=== PATIENT | female | born 1985 | race Caucasian/White ===

== ENCOUNTER 2017-05-25 07:55 | Day surgery (SDC) | payer OTHER ==
[2017-05-24 10:00] VITALS: BMI 21.1
[2017-05-25] MEDS ORDERED: PROMETHAZINE HCL 25 MG/1 ML VIAL IVPUSH PRN (09:53)
[2017-05-25] MEDS ORDERED: ONDANSETRON 4 MG/2 ML VIAL IVPUSH PRN (09:53)
[2017-05-25] MEDS ORDERED: LACTATED RINGERS SOLUTION 1,000 ML IV SCH (10:00)
[2017-05-25] MEDS ORDERED: ROCURONIUM BROMIDE 50 MG/5 ML VIAL ONE (10:03)
[2017-05-25] MEDS ORDERED: PROPOFOL 20 ML ONE (10:03)
[2017-05-25] MEDS ORDERED: MIDAZOLAM HCL 2 MG/2 ML SINGLE DOSE VIAL ONE (10:03)
[2017-05-25] MEDS ORDERED: LIDOCAINE HCL/PF 2% SDV 5ML VIAL ONE (10:21)
[2017-05-25] MEDS ORDERED: DEXAMETHASONE SOD PHOSPHATE 4 MG/1 ML VIAL ONE (10:23)
[2017-05-25] MEDS ORDERED: BUPIVACAINE HCL/PF 0.5% (5MG/ML) 10 ML VIAL IJ ONE ×2 (10:53)
[2017-05-25] MEDS ORDERED: GLYCOPYRROLATE 0.2 MG/1 ML VIAL ONE (11:04)
[2017-05-25] MEDS ORDERED: KETOROLAC TROMETHAMINE 30 MG/1 ML VIAL ONE (11:07)
[2017-05-25 13:48] VITALS: TEMP 97.8
[2017-05-25 14:33] VITALS: BP 135/72; PULSE 88
--- NOTE | 2017-05-25 15:08 | HP ---
Past Medical History - Primary Care Physician PCP:: Roby Corona - Admission Chief Complaint: 31yo P2 admitted for laparoscopic BTL History of Present Illness: Multiparity History Source: Patient Limitations to Obtaining History: No Limitations - Past Medical History COMPLEX MANAGER: No: Alzheimer's, CVA, Dementia, Migraine, Multiple Sclerosis, Peripheral Neuropathy, Parkinson's, Seizure, Syncope, TIA, Vertigo, Other Cardiovascular: No: AFIB, Aneurysm, Aortic Insufficiency, Aortic Stenosis, CAD, CHF, Deep Vein Thrombosis, HTN, Hyperlipdemia, [place], Mitral Insufficiency, Mitral Stenosis, Murmur, Pulmonary Hypertension, Other Pulmonary: No: Asthma, Bronchitis, Cancer, COPD, O2 Dependent, Pneumonia, Previously Intubated, Pulmonary Embolus, Pulmonary Fibrosis, Sleep Apnea, Other Hepatobiliary: Yes: Other (Primary billiary cholangitis) ...Para: 2 Heme/Onc: No: Anemia, B12 Deficiency, Bleeding Disorder, Cancer, Current Chemotherapy, Current Radiation Therapy, Hemochromatosis, Hypercoaguable State, Myeloproliferative Synd, Sickle Cell Disease, Sickle Cell Trait, Thrombocytopenia, Other Infectious Disease: No: AIDS, C-Diff, Herpes Zoster, HIV, MRSA, STD's, Tuberculosis, VREF, Other Psych: Yes: Bipolar Musculoskeletal: No: Bursitis, Chronic low back pain, Hemiparesis, Hemiplegia, Osteoarthritis, Paraplegia, Other Rheumatology: No: Fibromyalgia, Gout, Lupus, Rheumatoid Arthritis, Sarcoidosis, Vasculitis, Other ENT: No: Allergic Rhinitis, Sinusitis, Other Endocrine: No: Julio's Disease, Newburg's Disease, Diabetes Insipidus, Diabetes Mellitus, Hyperparathyroidism, Hyperthyroidism, Hypothyroidism, Osteopenia, SIADH, Other Dermatology: No: Basal Cell, Cellulitis, Eczema, Melanoma, Psoriasis, Squamous Cell, Other - Past Surgical History Past Surgical History: Yes: Hx Myomectomy: No Hx Transabdominal Cerclage: No Additional Surgical History: x 2 - Smoking History Smoking history: Current some day smoker Have you smoked in the past 12 months: Yes - Alcohol/Substance Use Hx Alcohol Use: No History of Substance Use: reports: None - Social History ADL: Independent Occupation: Unemployed History of Recent Travel: No Home Medications - Allergies Allergies/Adverse Reactions: Allergies Allergy/AdvReac Type Severity Reaction Status Date / Time No Known Allergies Allergy Verified 05/25/17 08:31 - Home Medications Home Medications: Ambulatory Orders Bupropion HCl [Wellbutrin Xl] 300 mg PO DAILY 05/24/17 Ursodiol 500 mg PO DAILY 05/24/17 Cyanocobalamin [Vitamin B12 -] 1,000 mcg PO DAILY 05/25/17 Gabyoph,Gus, B.lactis [Probiotic] 1 each PO DAILY 05/25/17 Family Disease History - Family Disease History Family Disease History: Other: Father (Hep C), Mother (Arthritis) Review of Systems - Review of Systems Constitutional: reports: No Symptoms Eyes: reports: No Symptoms HENT: reports: No Symptoms Neck: reports: No Symptoms Cardiovascular: reports: No Symptoms Respiratory: reports: No Symptoms Gastrointestinal: reports: No Symptoms Genitourinary: reports: No Symptoms Breasts: reports: No Symptoms Reported Musculoskeletal: reports: No Symptoms Integumentary: reports: No Symptoms Neurological: reports: No Symptoms Endocrine: reports: No Symptoms Hematology/Lymphatic: reports: No Symptoms Psychiatric: reports: No Symptoms Pain Intensity: 0 Physical Exam-LOADER OPERATOR Vital Signs: Vital Signs Temperature 97.8 F 05/25/17 12:00 Pulse Rate 88 05/25/17 13:50 Respiratory Rate 20 05/25/17 13:50 Blood Pressure 135/72 05/25/17 13:50 O2 Sat by Pulse Oximetry (%) 100 05/25/17 11:45 Constitutional: Yes: Well Nourished, No Distress, Calm Eyes: Yes: WNL, Conjunctiva Clear HENT: Yes: WNL, Atraumatic, Normocephalic Neck: Yes: WNL, Supple, Trachea Midline Cardiovascular: Yes: WNL, Regular Rate and Rhythm Respiratory: Yes: WNL, Regular, CTA Bilaterally Gastrointestinal: Yes: WNL ...Rectal Exam: Yes: WNL, Deferred Renal/: Yes: WNL Pelvis: Yes: WNL External Genitalia: Yes: Normal Internal Exam Deferred: No Vaginal Exam: Yes: Normal Cervix: Yes: Normal Uterus: Yes: Normal Adnexa: Normal: Left, Right Musculoskeletal: Yes: WNL Extremities: Yes: WNL Edema: No Integumentary: Yes: WNL, Tattoos Neurological: Yes: WNL, Alert, Oriented ...Motor Strength: WNL Psychiatric: Yes: WNL, Alert, Oriented Assessment/Plan 31yo P2 admitted for surgical sterilization. The pt prefers laparoscopic bilateral tubal ligation. We had discussed the risks, benefits, alternatives of surgery at length including but not limited to infection, bleeding, scarring, perforation, amenorrhea, infertility, hysterectomy, injury to surrounding/ underlying organs or structure, need for additional surgery to repair/treat any complications, etc. The patient verbalized understanding and requested to proceed with surgery. I emphasized that all surgeries have risks and no guarantees can be provided.
--- NOTE | 2017-05-25 15:20 | OP ---
Operative Note - Note: Operative Date: 05/25/17 Pre-Operative Diagnosis: Sterilization Operation: Laparoscopic BTL Findings: Normal uterus, ovaries, Fallopian tubes. Post-Operative Diagnosis: Same as Pre-op Surgeon: Roby Corona Trapeze Performer: Harish Alvarez Anesthesiologist/FEEDER TENDER: Milo Tapia Anesthesia: General Estimated Blood Loss (mls): 0 Drains & Tubes with Location: Cook catheter Drains, Volume Out (mls): 300 Blood Volume Replaced (mls): 0 Fluid Volume Replaced (mls): 150 Operative Report Dictated: Yes
--- NOTE | 2017-05-26 19:23 | OP ---
DATE OF OPERATION: 05/25/2017 PREOPERATIVE DIAGNOSES: Sterilization. POSTOPERATIVE DIAGNOSES: Sterilization. PROCEDURE: Laparoscopic bilateral tubal ligation via fulguration. SURGEON: Roby Corona MD DRAWER LINER: Harish Alvarez MD JUSTIFICATION FOR DRAWER LINER: Complexity of surgery and requirement for under water assistant during laparoscopy. ANESTHESIOLOGIST: Milo Tapia MD ANESTHESIA: General. COMPLICATIONS: None. ESTIMATED BLOOD LOSS: 0. IV FLUIDS: 150 mL. URINE OUTPUT: 300 mL of clear urine at the end of the procedure. PATHOLOGY: Uterine curettings. FINDINGS: Examination under anesthesia revealed a normal uterus and no pelvic or adnexal masses. Laparoscopy revealed a normal uterus, normal fallopian tubes and ovaries, normal visualized segments of bowel, stomach, and liver. DESCRIPTION OF PROCEDURE: The patient was met preoperatively. Risks, benefits, and alternatives of surgery were discussed in detail. All questions were answered. The patient was then brought to the OR with the IV running. She was placed on a surgical table in a supine position. General anesthesia was established without difficulty. The patient was then placed in a dorsal lithotomy position using adjustable Chris stirrups. She was examined under anesthesia with the findings as described above. The patient was then prepped and draped in the usual sterile fashion. A time-out procedure was conducted as per standard protocol. The surgeons then introduced a Cook catheter with a sterile technique and left to drain to gravity. A HUMI uterine manipulation was also inserted and left in place. The surgeons then regloved and proceeded with a laparoscopy. A 5-mm infraumbilical incision was made with a knife. A Veress needle was introduced through the umbilical incision without complications. The pneumoperitoneum produced with the intra-abdominal pressure not exceeding 15 mmHg. The Veress needle was then removed, and a 5-mm Optiview trocar was introduced through the umbilical incision without complications. A second 5-mm incision was then made approximately 2 cm above the pubic symphysis along the prior Pfannenstiel scar. A second 5-mm trocar was introduced through that incision under direct visualization. A Klejeremy bipolar cautery was then used to grasp the left fallopian tube. The left fallopian tube was cauterized in the midsection for approximately 3 cm. The right fallopian tube was also then isolated and cauterized in the midsection for the length of approximately 3 cm. Excellent hemostasis was noted. Survey of the abdomen and pelvis was then done with the findings as described above. The instruments were then removed from the patient. The pneumoperitoneum was reduced. The abdominal skin incisions were closed using a 4-0 Biosyn suture. Bupivacaine subcutaneous injection was then used at the sites of incisions. The patient was then returned to supine position. The HUMI uterine manipulation and Cook catheter were removed. The patient was transferred to the recovery room awake and in stable condition. Alok SANTANA/[id number]
== END 2017-05-25 13:50 | disposition home or self-care (01) ==
LOC: JASU-SURG 07:55
PROVIDERS: ATTEND Obstetrics & Gynecology
PROC: 0U574ZZ Destruction of Bilateral Fallopian Tubes, Percutaneous Endoscopic Approach (ICD-10-PCS; principal; 2017-05-25 09:30)
DX: Z30.2 Encounter for sterilization (principal)
CPT/HCPCS: 84703; 86850; 86900; 86901; 94010; 94760